=== PATIENT | female | born 1945 | race Caucasian/White ===

== ENCOUNTER → 2016-07-27 | Outpatient (CLI) | payer MEDICARE, OTHER ==
[~2016-07-27] MED LIST: ALBU8HFA IH; ASPI81 PO; CA/D1TAB7 PO; CALCITONIN SALMON NASAL; ENAL5 PO; FOLIC ACID PO; GARLIC PO; SIMV-260 PO; TIOT185 IH
== END | disposition home or self-care (01) ==
LOC: RADPV 07:06
PROVIDERS: ATTEND Legal Medicine
DX: J44.9 Chronic obstructive pulmonary disease, unspecified (principal); J84.9 Interstitial pulmonary disease, unspecified; M41.84 Other forms of scoliosis, thoracic region; I70.0 Atherosclerosis of aorta; M85.88 Other specified disorders of bone density and structure, other site; J92.9 Pleural plaque without asbestos; M41.86 Other forms of scoliosis, lumbar region; M47.816 Spondylosis without myelopathy or radiculopathy, lumbar region; M51.36 Other intervertebral disc degeneration, lumbar region; M51.37 Other intervertebral disc degeneration, lumbosacral region
CPT/HCPCS: 71020; 72100

== ENCOUNTER → 2016-08-21 | Outpatient (CLI) | payer MEDICARE, OTHER ==
[~2016-08-21] VITALS: Ht 160 cm; Wt 43.0 kg
[~2016-08-21] MED LIST changes: +CYCL10 PO; +ESOM20CA31 PO; +NAPR375T4 PO
[2016-08-21 12:43] VITALS: BP 137/74
== END | disposition home or self-care (01) ==
LOC: SRCNTR 12:39
PROVIDERS: ATTEND Internal Medicine
DX: J44.9 Chronic obstructive pulmonary disease, unspecified (principal); I10 Essential (primary) hypertension; E78.5 Hyperlipidemia, unspecified; Z87.891 Personal history of nicotine dependence
CPT/HCPCS: G0463

== ENCOUNTER → 2016-09-07 | Outpatient (CLI) | payer MEDICARE, OTHER ==
[2016-09-07 07:46] LABS: ABG A-A DIFF O2 26.5 mmHg (10-20.0); ABG BASE EXCESS 2.9 mmol/L (-2.0-3.0); ABG HCO3 26.8 mmol/L (22.0-26.0); ABG OXYHEMOGLOBIN 92.6 % (94.0-100.0); ABG PCO2 41 mmHg (35-45); ALLEN TEST, BLOOD GAS Positive; TEMPERATURE, FAHRENHEIT, BG 98.6 FAHREN (96.0-98.6)
== END | disposition home or self-care (01) ==
LOC: RESP 07:11
PROVIDERS: ATTEND Internal Medicine
DX: J44.9 Chronic obstructive pulmonary disease, unspecified (principal)
CPT/HCPCS: 82805; 94010; 94726; 94727; 94729

== ENCOUNTER → 2016-09-14 | Outpatient (CLI) | payer MEDICARE, OTHER ==
[~2016-09-14] VITALS: Ht 160 cm; Wt 41.0 kg
[2016-09-14 13:14] VITALS: BP 126/71
== END | disposition home or self-care (01) ==
LOC: SRCNTR 12:41
PROVIDERS: ATTEND Internal Medicine
DX: J44.9 Chronic obstructive pulmonary disease, unspecified (principal); I10 Essential (primary) hypertension; R09.02 Hypoxemia; E78.5 Hyperlipidemia, unspecified; Z87.891 Personal history of nicotine dependence
CPT/HCPCS: G0463

== ENCOUNTER → 2016-11-09 | Outpatient (CLI) | payer MEDICARE, OTHER ==
[~2016-11-09] VITALS: Ht 160 cm; Wt 42.0 kg
[~2016-11-09] MED LIST changes: +NAPR-1193 PO; -NAPR375T4 PO
[2016-11-09 13:13] VITALS: BP 134/76
== END | disposition home or self-care (01) ==
LOC: SRCNTR 12:53
PROVIDERS: ATTEND Internal Medicine
DX: J44.9 Chronic obstructive pulmonary disease, unspecified (principal); I10 Essential (primary) hypertension; Z79.82 Long term (current) use of aspirin; Z87.891 Personal history of nicotine dependence
CPT/HCPCS: G0463

== ENCOUNTER → 2017-03-15 | Outpatient (CLI) | payer MEDICARE, OTHER ==
[~2017-03-15] VITALS: Ht 160 cm; Wt 41.5 kg
[~2017-03-15] MED LIST changes: -CYCL10 PO; -ENAL5 PO
[2017-03-15 12:45] VITALS: BP 142/85
== END | disposition home or self-care (01) ==
LOC: SRCNTR 12:37
PROVIDERS: ATTEND Internal Medicine
DX: J44.9 Chronic obstructive pulmonary disease, unspecified (principal); I10 Essential (primary) hypertension; Z79.82 Long term (current) use of aspirin
CPT/HCPCS: G0463

== ENCOUNTER → 2017-08-09 | Outpatient (CLI) | payer MEDICARE, OTHER ==
[~2017-08-09] VITALS: Ht 160 cm; Wt 41.5 kg
[2017-08-09 12:54] VITALS: BP 137/69
== END | disposition home or self-care (01) ==
LOC: SRCNTR 12:27
PROVIDERS: ATTEND Internal Medicine
DX: J44.9 Chronic obstructive pulmonary disease, unspecified (principal); I10 Essential (primary) hypertension; F17.200 Nicotine dependence, unspecified, uncomplicated
CPT/HCPCS: G0463

== ENCOUNTER → 2017-08-28 | Outpatient (CLI) | payer MEDICARE, OTHER | END | disposition home or self-care (01) | LOC: RESP 07:53 | PROVIDERS: ATTEND Internal Medicine | DX: J44.1 Chronic obstructive pulmonary disease with (acute) exacerbation (principal) | CPT/HCPCS: 94010; 94726; 94727; 94729 ==

== ENCOUNTER → 2017-09-17 | Outpatient (CLI) | payer MEDICARE, OTHER ==
[~2017-09-17] VITALS: Ht 160 cm; Wt 42.5 kg
[2017-09-17 09:54] VITALS: BP 148/92
== END | disposition home or self-care (01) ==
LOC: SRCNTR 09:34
PROVIDERS: ATTEND Internal Medicine
DX: J44.1 Chronic obstructive pulmonary disease with (acute) exacerbation (principal); Z87.891 Personal history of nicotine dependence
CPT/HCPCS: G0463

== ENCOUNTER → 2017-11-22 | Outpatient (CLI) | payer MEDICARE, OTHER ==
[~2017-11-22] VITALS: Ht 160 cm; Wt 42.5 kg
[2017-11-22 13:31] VITALS: BP 146/72
== END | disposition home or self-care (01) ==
LOC: SRCNTR 13:07
PROVIDERS: ATTEND Internal Medicine
DX: J43.9 Emphysema, unspecified (principal); Z87.891 Personal history of nicotine dependence
CPT/HCPCS: 90471; 96372; G0463

== ENCOUNTER → 2018-03-27 | Outpatient (CLI) | payer MEDICARE, OTHER ==
[~2018-03-27] VITALS: Ht 160 cm; Wt 43.5 kg
[2018-03-27 09:44] VITALS: BP 189/99
== END | disposition home or self-care (01) ==
LOC: SRCNTR 09:02
PROVIDERS: ATTEND Internal Medicine
DX: J44.9 Chronic obstructive pulmonary disease, unspecified (principal)
CPT/HCPCS: G0463

== ENCOUNTER → 2018-05-01 | Outpatient (CLI) | payer MEDICARE, OTHER ==
[~2018-05-01] MED LIST changes: +ENAL5 PO; +OMEP20 PO
== END | disposition home or self-care (01) ==
LOC: RADMN 08:25
PROVIDERS: ATTEND Specialist
DX: I67.82 Cerebral ischemia (principal); R26.9 Unspecified abnormalities of gait and mobility; R25.1 Tremor, unspecified
CPT/HCPCS: 70551

== ENCOUNTER → 2018-12-11 | Outpatient (CLI) | payer MEDICARE, OTHER ==
[~2018-12-11] VITALS: Ht 160 cm; Wt 41.0 kg
[~2018-12-11] MED LIST changes: -ENAL5 PO; +ENAL5TAB17 PO; -ESOM20CA31 PO
[2018-12-11 09:26] VITALS: BP 143/78
== END | disposition home or self-care (01) ==
LOC: SRCNTR 09:14
PROVIDERS: ATTEND Internal Medicine
DX: I10 Essential (primary) hypertension (principal); J44.9 Chronic obstructive pulmonary disease, unspecified
CPT/HCPCS: G0463

== ENCOUNTER 2019-04-07 20:18 | Emergency (ER) | payer MEDICARE, OTHER ==
[~2019-04-07] VITALS: Ht 160 cm; Wt 42.3 kg
[~2019-04-07 20:18] MED LIST changes: +ASPI-728 PO; -ASPI81 PO
[2019-04-08 00:40] VITALS: BP 114/68
== END 2019-04-08 00:53 | disposition left against medical advice (07) ==
LOC: EMS 20:19
DX: S41.112A Laceration without foreign body of left upper arm, initial encounter (principal); S51.812A Laceration without foreign body of left forearm, initial encounter; R53.1 Weakness; R55 Syncope and collapse; I62.03 Nontraumatic chronic subdural hemorrhage; I10 Essential (primary) hypertension; E78.00 Pure hypercholesterolemia, unspecified; K21.9 Gastro-esophageal reflux disease without esophagitis; J44.9 Chronic obstructive pulmonary disease, unspecified; F17.210 Nicotine dependence, cigarettes, uncomplicated; Z79.82 Long term (current) use of aspirin; Z79.899 Other long term (current) drug therapy; W18.39XA Other fall on same level, initial encounter; Y93.89 Activity, other specified; Y92.099 Unspecified place in other non-institutional residence as the place of occurrence of the external cause; Y99.8 Other external cause status
CPT/HCPCS: 70450; 93005

== ENCOUNTER 2019-11-07 07:02 | Emergency (ER) | payer MEDICARE, OTHER ==
[~2019-11-07] VITALS: Ht 160 cm; Wt 40.0 kg
[2019-11-07] MEDS ORDERED: LIDOCAINE 5% TRANSDERMAL PATCH TD ONE (10:00)
[2019-11-07] MEDS ORDERED: NAPROXEN 250 MG TABLET PO ONE (10:15)
[2019-11-07 11:35] VITALS: BP 140/89
== END 2019-11-07 11:46 | disposition home or self-care (01) ==
LOC: EMS 07:04
DX: S32.019A Unspecified fracture of first lumbar vertebra, initial encounter for closed fracture (principal); S22.089A Unspecified fracture of T11-T12 vertebra, initial encounter for closed fracture; J44.9 Chronic obstructive pulmonary disease, unspecified; K21.9 Gastro-esophageal reflux disease without esophagitis; E78.00 Pure hypercholesterolemia, unspecified; I10 Essential (primary) hypertension; Z87.891 Personal history of nicotine dependence; Z79.82 Long term (current) use of aspirin; W01.0XXA Fall on same level from slipping, tripping and stumbling without subsequent striking against object, initial encounter; Y93.89 Activity, other specified; Y92.89 Other specified places as the place of occurrence of the external cause; Y99.8 Other external cause status
CPT/HCPCS: 70450; 72131

== ENCOUNTER 2019-11-12 11:08 | Inpatient (IN) | payer MEDICARE, OTHER ==
[~2019-11-12] VITALS: Ht 160 cm; Wt 38.6 kg
[2019-11-12] MEDS ORDERED: TRAM50TA4 PO (11:26)
[2019-11-12] MEDS ORDERED: LIDO35.44 TP (11:26)
[2019-11-12] MEDS ORDERED: CYCL10 PO (11:26)
[2019-11-12] MEDS ORDERED: KETOROLAC TROMETHAMINE 10 MG TABLET PO ONE (12:00)
[2019-11-12 12:28] LABS: BASOPHILS % (AUTO) 0.4 % (0.0-2.0); EOSINOPHILS % (AUTO) 0.2 % (1.0-6.0); HEMATOCRIT 32.9 % (36-46); LYMPHOCYTES # (AUTO) 0.5 K/uL (1.0-4.8); LYMPHOCYTES % (AUTO) 4.7 % (22.0-44.0); MEAN CORPUSCULAR HEMOGLOBIN 34.6 pg (26.0-34.0); MEAN CORPUSCULAR HGB CONC 33.3 G/dL (31.0-37.0); MEAN CORPUSCULAR VOLUME 104 fL (80-100); MONOCYTES % (AUTO) 9.5 % (2.0-9.0); NEUTROPHILS # (AUTO) 9.2 K/uL (1.8-7.7); PLATELET COUNT (AUTO) 268 K/uL (150-450); RED BLOOD CELL COUNT(AUTO) 3.17 MIL/uL (4.00-5.20); RED CELL DISTRIBUTION WIDTH 14.3 % (11.5-14.5)
[2019-11-12 12:30] LABS: ANION GAP 7 mmol/L (8-16); CARBON DIOXIDE 26 mmol/L (22-29); CHLORIDE 96 mmol/L (98-107); GLUCOSE,RANDOM 68 mg/dL (70-110); NEUTROPHILS % (AUTO) 85.2 % (40.0-70.0); POTASSIUM 3.5 mmol/L (3.5-5.1); SODIUM SERUM 129 mmol/L (136-145); UREA NITROGEN, BLOOD 9 mg/dL (7-18)
[2019-11-12 12:31] LABS: GLOMERULAR FILTR. RATE CALC > 60 mL/min (>60)
[2019-11-12 12:36] LABS: ALANINE AMINOTRANSFERASE 25 U/L (12-78); ALBUMIN 1.8 g/dL (3.4-5.0); ALKALINE PHOSPHATASE 124 U/L (46-116); ASPARTATE AMINOTRANSFERASE 31 U/L (15-37); BILIRUBIN,TOTAL 1.5 mg/dL (0.1-1.0); TOTAL PROTEIN, SERUM 5.4 g/dL (6.4-8.2)
[2019-11-12] MEDS ORDERED: SODIUM CHLORIDE 0.9% 1,000 ML IV ONE (13:45)
[2019-11-12] MEDS ORDERED: ONDANSETRON HCL 4 MG/2 ML VIAL IVP PRN ×2 (15:30→15:45)
[2019-11-12] MEDS ORDERED: HYDROCODONE/ACETAMINOPHEN 5-325 MG TABLET PO PRN (15:30)
[2019-11-12] MEDS ORDERED: ACETAMINOPHEN 325 MG TABLET PO PRN ×2 (15:30→15:45)
[2019-11-12] MEDS ORDERED: ALBUTEROL SULFATE HFA 90 MCG/PUFF 8 GM INHALER IH PRN (15:30)
[2019-11-12] MEDS ORDERED: 0.9% SODIUM CHLORIDE 10 ML SYRINGE IVP PRN (15:30)
[2019-11-12] MEDS ORDERED: BISACODYL 10 MG RECTAL RECTAL SUPPOSITORY PR PRN (15:45)
[2019-11-12] MEDS ORDERED: LORazepam 2 MG/ML VIAL IVP PRN (15:45)
[2019-11-12] MEDS ORDERED: MAGNESIUM HYDROXIDE SUSPENSION 30 ML UDCUP PO PRN (15:45)
[2019-11-12] MEDS ORDERED: ZOLPIDEM TARTRATE 5 MG TABLET PO PRN (15:45)
[2019-11-12 16:11] LABS: APPEARANCE,URINE CLOUDY (CLEAR); BILIRUBIN,URINE PRELIM. POSITIVE (NEGATIVE); GLUCOSE, URINE (UA) NEGATIVE (NEGATIVE); KETONES,URINE 40 mg/dL (NEGATIVE); LEUKOCYTE ESTERASE ,URINE TRACE (NEGATIVE); OCCULT BLOOD,URINE TRACE (NEGATIVE); PH,URINE 5.5 (5.0-8.0); PROTEIN,URINE TRACE (NEGATIVE)
[2019-11-12 16:19] LABS: NITRATE,URINE POSITIVE (NEGATIVE)
[2019-11-12 16:22] LABS: RBC,URINE 0-2 /HPF (0-2)
[2019-11-12 16:23] LABS: BACTERIA,URINE Many /HPF (None Seen); SQUAMOUS EPITHELIAL CELL,UR Moderate /LPF (None Seen); WBC,URINE 0-2 /HPF (0-5)
[2019-11-12 18:51] VITALS: BP 154/77
[2019-11-12] MEDS: OMEPRAZOLE 20 MG CAPSULE PO SCH (20:06)
[2019-11-12] MEDS: DEXTROSE 5%-0.9% SODIUM CHL 1,000 ML IV SCH (20:07)
[2019-11-12] MEDS ORDERED: HEPARIN SODIUM,PORCINE 5,000 UNITS/ML VIAL SQ SCH (21:00)
[2019-11-12] MEDS: CYCLOBENZAPRINE HCL 10 MG TABLET PO SCH (21:29)
[2019-11-12] MEDS: BUDESONIDE/FORMOTEROL FUMARATE 80-4.5 MCG/PUFF 6.9 GM INHALER IH SCH (21:29)
[2019-11-12 23:56] VITALS: BP 141/81
[2019-11-13 04:19] VITALS: BP 145/87
[2019-11-13 06:42] LABS: BASOPHILS % (AUTO) 0.2 % (0.0-2.0); EOSINOPHILS % (AUTO) 0.9 % (1.0-6.0); HEMATOCRIT 32.5 % (36-46); HEMOGLOBIN 10.6 g/dL (12.0-16.0); LYMPHOCYTES # (AUTO) 0.5 K/uL (1.0-4.8); LYMPHOCYTES % (AUTO) 5.2 % (22.0-44.0); MEAN CORPUSCULAR HEMOGLOBIN 34.5 pg (26.0-34.0); MEAN CORPUSCULAR HGB CONC 32.6 G/dL (31.0-37.0); MEAN CORPUSCULAR VOLUME 106 fL (80-100); MONOCYTES # (AUTO) 1.2 K/uL (0.1-1.0); MONOCYTES % (AUTO) 12.5 % (2.0-9.0); NEUTROPHILS # (AUTO) 7.6 K/uL (1.8-7.7); NEUTROPHILS % (AUTO) 81.2 % (40.0-70.0); PLATELET COUNT (AUTO) 267 K/uL (150-450); RED BLOOD CELL COUNT(AUTO) 3.08 MIL/uL (4.00-5.20); RED CELL DISTRIBUTION WIDTH 14.8 % (11.5-14.5)
[2019-11-13 07:21] VITALS: BP 156/87
[2019-11-13 07:27] LABS: ALANINE AMINOTRANSFERASE 19 U/L (12-78); ALBUMIN 1.5 g/dL (3.4-5.0); ALKALINE PHOSPHATASE 103 U/L (46-116); ANION GAP 8 mmol/L (8-16); ASPARTATE AMINOTRANSFERASE 26 U/L (15-37); BILIRUBIN,TOTAL 0.7 mg/dL (0.1-1.0); CALCIUM, TOTAL 7.7 mg/dL (8.8-10.5); CARBON DIOXIDE 25 mmol/L (22-29); CHLORIDE 98 mmol/L (98-107); CHOL/HDL RATIO 2.1 (3.9-5.7); CHOLESTEROL 122 mg/dL (131-200); FREE T4 (FREE THYROXINE) 1.18 ng/dL (0.76-1.46); GLUCOSE,RANDOM 133 mg/dL (70-110); HDL CHOLESTEROL 59 mg/dL (40-60); LDL CHOL (CALC.) 48 mg/dL (0-130); PHOSPHORUS 2.7 mg/dL (2.5-4.9); SODIUM SERUM 131 mmol/L (136-145); THYROID STIMULATING HORMONE 1.93 uIU/mL (0.36-3.74); TOTAL PROTEIN, SERUM 4.9 g/dL (6.4-8.2); TRIGLYCERIDES 76 mg/dL (15-150); UREA NITROGEN, BLOOD 6 mg/dL (7-18)
[2019-11-13 07:28] LABS: HEMOGLOBIN A1C 4.9 % (3.8-5.6)
[2019-11-13 07:37] LABS: GLOMERULAR FILTR. RATE CALC > 60 mL/min (>60)
[2019-11-13] MEDS ORDERED: GADOBUTROL 1 MMOL/ML 10 ML VIAL IVP ONE (07:40)
[2019-11-13] MEDS ORDERED: MAGNESIUM SULFATE 1 GM in DEXTROSE 5%-WATER 50 ML IV ONE (08:00)
[2019-11-13] MEDS: CYCLOBENZAPRINE HCL 10 MG TABLET PO SCH ×2 (08:02→21:00)
[2019-11-13] MEDS ORDERED: POTASSIUM CHLORIDE 20 MEQ ER TABLET PO ONE (08:15)
[2019-11-13] MEDS: TIOTROPIUM BROMIDE 18 MCG/INH HANDIHALER [5] IH SCH (09:00)
[2019-11-13] MEDS ORDERED: ENALAPRIL MALEATE 5 MG TABLET PO SCH (09:00)
[2019-11-13 10:56] LABS: INR 1.2 (0.9-1.1); PROTHROMBIN TIME 12.2 SEC (9.4-11.6)
[2019-11-13] MEDS: AmLODIPine BESYLATE 5 MG TABLET PO SCH (11:12)
[2019-11-13] MEDS: POTASSIUM CHL 10 MEQ/WATER 50 ML IV SCH ×2 (11:12→13:16)
[2019-11-13] MEDS: SODIUM CHLORIDE 1 GM TABLET PO SCH ×2 (11:12→18:21)
[2019-11-13] MEDS: SIMVASTATIN 20 MG TABLET PO SCH (11:12)
[2019-11-13] MEDS: OMEPRAZOLE 20 MG CAPSULE PO SCH ×2 (11:13→21:00)
[2019-11-13] MEDS: DEXTROSE 5%-0.9% SODIUM CHL 1,000 ML IV SCH (11:14)
[2019-11-13] MEDS: BUDESONIDE/FORMOTEROL FUMARATE 80-4.5 MCG/PUFF 6.9 GM INHALER IH SCH ×2 (11:14→22:53)
[2019-11-13] MEDS ORDERED: MAGNESIUM SULFATE 2 GM/WATER 50 ML IV ONE (12:15)
[2019-11-13 16:00] VITALS: BP 145/84
[2019-11-13 18:14] LABS: ANION GAP 7 mmol/L (8-16); CALCIUM, TOTAL 8.3 mg/dL (8.8-10.5); CARBON DIOXIDE 24 mmol/L (22-29); CHLORIDE 100 mmol/L (98-107); CREATININE 0.61 mg/dL (0.60-1.30); GLUCOSE,RANDOM 188 mg/dL (70-110); PHOSPHORUS 2.1 mg/dL (2.5-4.9); POTASSIUM 4.1 mmol/L (3.5-5.1); SODIUM SERUM 131 mmol/L (136-145); UREA NITROGEN, BLOOD 6 mg/dL (7-18)
[2019-11-13 18:19] LABS: GLOMERULAR FILTR. RATE CALC > 60 mL/min (>60)
[2019-11-13 19:55] VITALS: BP 146/82
[2019-11-13] MEDS ORDERED: LORazepam 2 MG/ML VIAL IVP ONE (23:30)
[2019-11-13 23:48] VITALS: BP 166/68
[2019-11-14 04:09] VITALS: BP 134/85
[2019-11-14] MEDS ORDERED: SODIUM CHLORIDE 0.9% 250 ML IV ONE (04:24)
[2019-11-14] MEDS ORDERED: RINGERS SOLUTION,LACTATED 1,000 ML IV ONE ×3 (06:25→08:57)
[2019-11-14] MEDS ORDERED: BUPIVACAINE/EPI/PF 0.5% 30 ML VIAL ONE (06:56)
[2019-11-14] MEDS ORDERED: IOHEXOL 240 MG/ML 20 ML VIAL ONE (06:58)
[2019-11-14 07:53] LABS: ABG CARBOXYHEMOGLOBIN 0.3 % (0.0-1.5); ABG METHEMOGLOBIN 0.3 % (0.0-1.5); ABG OXYGEN CONTENT 15.8 mL/dL (15.0-23.0); ABG OXYGEN SATURATION 98.4 % (95.0-98.0); ABG OXYHEMOGLOBIN 97.8 % (94.0-100.0); ABG PCO2 40 mmHg (35-45); ABG PH 7.382 (7.35-7.450); ABG TOTAL HEMOGLOBIN 11.3 G/dL (12.0-18.0); PO2, ARTERIAL BG 129.7 mmHg (75.0-83.0); SOURCE, BLOOD GAS ARTERIAL; TEMPERATURE, FAHRENHEIT, BG 98.6 FAHREN (96.0-98.6)
[2019-11-14 07:54] LABS: O2 DEVICE,BLOOD GAS CANNULA (ROOM AIR); SITE, BLOOD GAS RT RADIAL
[2019-11-14] MEDS: CYCLOBENZAPRINE HCL 10 MG TABLET PO SCH ×2 (09:00→21:57)
[2019-11-14] MEDS: BUDESONIDE/FORMOTEROL FUMARATE 80-4.5 MCG/PUFF 6.9 GM INHALER IH SCH ×2 (09:00→21:57)
[2019-11-14] MEDS: TIOTROPIUM BROMIDE 18 MCG/INH HANDIHALER [5] IH SCH (09:00)
[2019-11-14] MEDS: OMEPRAZOLE 20 MG CAPSULE PO SCH ×2 (09:00→21:14)
[2019-11-14] MEDS: AmLODIPine BESYLATE 5 MG TABLET PO SCH (09:00)
[2019-11-14] MEDS: SIMVASTATIN 20 MG TABLET PO SCH (09:00)
[2019-11-14] MEDS ORDERED: SUGAMMADEX SODIUM 200 MG/2 ML VIAL IVP ONE (09:14)
[2019-11-14 11:30] VITALS: BP 140/93
[2019-11-14] MEDS: SODIUM CHLORIDE 1 GM TABLET PO SCH ×3 (12:30→17:04)
[2019-11-14] MEDS: OXYGEN THERAPY IH SCH ×2 (12:31→21:16)
[2019-11-14] MEDS: DEXTROSE 5%-0.9% SODIUM CHL 1,000 ML IV SCH (13:42)
[2019-11-14 16:24] VITALS: BP 112/94
[2019-11-14] MEDS: LEVOFLOXACIN 500 MG/D5% WATER 100 ML IV SCH (17:04)
[2019-11-14 21:07] VITALS: BP 125/73
[2019-11-14] MEDS: TraMADol HCL 50 MG TABLET PO PRN (21:14)
[2019-11-15] VITALS (7 sets, daily range): BP systolic 112–130; BP diastolic 66–86
[2019-11-15] MEDS: SODIUM CHLORIDE 1 GM TABLET PO SCH ×3 (00:30→20:44)
[2019-11-15] MEDS ORDERED: LIDOCAINE/PF 2% 5 ML SYRINGE IVP ONE (06:34)
[2019-11-15] MEDS ORDERED: SUGAMMADEX SODIUM 200 MG/2 ML VIAL IVP ONE (06:34)
[2019-11-15] MEDS ORDERED: ONDANSETRON HCL 4 MG/2 ML VIAL IVP ONE (06:34)
[2019-11-15] MEDS ORDERED: DEXAMETHASONE SOD PHOS 4 MG/ML VIAL IVP ONE (06:34)
[2019-11-15] MEDS ORDERED: PROPOFOL 1% 20 ML VIAL IVP ONE (06:34)
[2019-11-15 07:07] LABS: ANION GAP 4 mmol/L (8-16); CALCIUM, TOTAL 7.9 mg/dL (8.8-10.5); CARBON DIOXIDE 28 mmol/L (22-29); CHLORIDE 105 mmol/L (98-107); CREATININE 0.42 mg/dL (0.60-1.30); GLUCOSE,RANDOM 108 mg/dL (70-110); PHOSPHORUS 2.4 mg/dL (2.5-4.9); POTASSIUM 3.7 mmol/L (3.5-5.1); SODIUM SERUM 137 mmol/L (136-145); UREA NITROGEN, BLOOD 3 mg/dL (7-18)
[2019-11-15 07:15] LABS: GLOMERULAR FILTR. RATE CALC > 60 mL/min (>60)
[2019-11-15] MEDS: DEXTROSE 5%-0.9% SODIUM CHL 1,000 ML IV SCH (08:02)
[2019-11-15] MEDS: OXYGEN THERAPY IH SCH ×2 (08:02→20:41)
[2019-11-15] MEDS: SIMVASTATIN 20 MG TABLET PO SCH (08:03)
[2019-11-15] MEDS: AmLODIPine BESYLATE 5 MG TABLET PO SCH (08:05)
[2019-11-15] MEDS: CYCLOBENZAPRINE HCL 10 MG TABLET PO SCH ×2 (08:05→20:44)
[2019-11-15] MEDS: OMEPRAZOLE 20 MG CAPSULE PO SCH ×2 (08:06→20:44)
[2019-11-15] MEDS: TraMADol HCL 50 MG TABLET PO PRN (13:59)
[2019-11-15] MEDS: TIOTROPIUM BROMIDE 18 MCG/INH HANDIHALER [5] IH SCH (15:25)
[2019-11-15] MEDS: LEVOFLOXACIN 500 MG/D5% WATER 100 ML IV SCH (15:25)
[2019-11-15] MEDS: BUDESONIDE/FORMOTEROL FUMARATE 80-4.5 MCG/PUFF 6.9 GM INHALER IH SCH ×3 (15:26→20:47)
[2019-11-16 04:15] VITALS: BP 122/70
[2019-11-16 08:30] VITALS: BP 107/62
[2019-11-16] MEDS: BUDESONIDE/FORMOTEROL FUMARATE 80-4.5 MCG/PUFF 6.9 GM INHALER IH SCH ×2 (09:00→20:33)
[2019-11-16] MEDS: AmLODIPine BESYLATE 5 MG TABLET PO SCH (09:00)
[2019-11-16] MEDS: TIOTROPIUM BROMIDE 18 MCG/INH HANDIHALER [5] IH SCH (09:18)
[2019-11-16] MEDS: SIMVASTATIN 20 MG TABLET PO SCH (09:19)
[2019-11-16] MEDS: CYCLOBENZAPRINE HCL 10 MG TABLET PO SCH ×2 (09:19→20:34)
[2019-11-16] MEDS: SODIUM CHLORIDE 1 GM TABLET PO SCH ×2 (09:20→20:34)
[2019-11-16] MEDS: OMEPRAZOLE 20 MG CAPSULE PO SCH ×2 (09:20→20:34)
[2019-11-16] MEDS: OXYGEN THERAPY IH SCH ×2 (09:20→20:33)
[2019-11-16] MEDS: POTASSIUM CHL 10 MEQ/WATER 50 ML IV SCH ×3 (11:00→13:00)
[2019-11-16 11:48] VITALS: BP 133/83
[2019-11-16 16:12] VITALS: BP 117/73
[2019-11-16] MEDS: LEVOFLOXACIN 500 MG/D5% WATER 100 ML IV SCH (16:21)
[2019-11-16 20:25] VITALS: BP 132/68
[2019-11-16 23:44] VITALS: BP 124/61
[2019-11-17 05:07] VITALS: BP 134/77
[2019-11-17] MEDS: TraMADol HCL 50 MG TABLET PO PRN (06:21)
[2019-11-17 06:53] LABS: BASOPHILS % (AUTO) 0.2 % (0.0-2.0); EOSINOPHILS % (AUTO) 1.3 % (1.0-6.0); HEMATOCRIT 32.3 % (36-46); HEMOGLOBIN 10.8 g/dL (12.0-16.0); LYMPHOCYTES # (AUTO) 0.9 K/uL (1.0-4.8); LYMPHOCYTES % (AUTO) 11.6 % (22.0-44.0); MEAN CORPUSCULAR HEMOGLOBIN 34.9 pg (26.0-34.0); MEAN CORPUSCULAR HGB CONC 33.3 G/dL (31.0-37.0); MEAN CORPUSCULAR VOLUME 105 fL (80-100); MONOCYTES # (AUTO) 0.8 K/uL (0.1-1.0); MONOCYTES % (AUTO) 11.5 % (2.0-9.0); NEUTROPHILS # (AUTO) 5.6 K/uL (1.8-7.7); NEUTROPHILS % (AUTO) 75.4 % (40.0-70.0); PLATELET COUNT (AUTO) 361 K/uL (150-450); RED BLOOD CELL COUNT(AUTO) 3.08 MIL/uL (4.00-5.20); RED CELL DISTRIBUTION WIDTH 14.6 % (11.5-14.5)
[2019-11-17 07:00] VITALS: BP 138/70
[2019-11-17 07:12] LABS: ANION GAP 5 mmol/L (8-16); CALCIUM, TOTAL 8.2 mg/dL (8.8-10.5); CARBON DIOXIDE 27 mmol/L (22-29); CHLORIDE 104 mmol/L (98-107); CREATININE 0.38 mg/dL (0.60-1.30); GLUCOSE,RANDOM 87 mg/dL (70-110); POTASSIUM 3.5 mmol/L (3.5-5.1); SODIUM SERUM 136 mmol/L (136-145); UREA NITROGEN, BLOOD 5 mg/dL (7-18)
[2019-11-17 07:13] LABS: GLOMERULAR FILTR. RATE CALC > 60 mL/min (>60)
[2019-11-17] MEDS: SIMVASTATIN 20 MG TABLET PO SCH (08:15)
[2019-11-17] MEDS: SODIUM CHLORIDE 1 GM TABLET PO SCH (08:15)
[2019-11-17] MEDS: AmLODIPine BESYLATE 5 MG TABLET PO SCH (08:15)
[2019-11-17] MEDS: OMEPRAZOLE 20 MG CAPSULE PO SCH (08:16)
[2019-11-17] MEDS: BUDESONIDE/FORMOTEROL FUMARATE 80-4.5 MCG/PUFF 6.9 GM INHALER IH SCH (08:16)
[2019-11-17] MEDS: OXYGEN THERAPY IH SCH (08:16)
[2019-11-17] MEDS: TIOTROPIUM BROMIDE 18 MCG/INH HANDIHALER [5] IH SCH (08:16)
[2019-11-17] MEDS: CYCLOBENZAPRINE HCL 10 MG TABLET PO SCH (08:16)
[2019-11-17] MEDS ORDERED: THIAMINE 100 MG TABLET PO SCH (09:00)
[2019-11-17] MEDS ORDERED: MULTIVITAMINS WITH MINERALS, THERAPEUTIC TABLET PO SCH (09:00)
[2019-11-17 10:57] VITALS: BP 144/81
[2019-11-17] MEDS: LEVOFLOXACIN 500 MG/D5% WATER 100 ML IV SCH (15:09)
[2019-11-17 15:48] VITALS: BP 123/94
== END 2019-11-17 19:15 | DRG 477 ==
LOC: EMS 11:09 → 4E 15:35 → 6S 18:20 → 4E 11-13 18:52 → 5S 11-14 11:15
PROVIDERS: ADMIT Internal Medicine Geriatric Medicine; ATTEND Internal Medicine Geriatric Medicine
PROC: 0QS03ZZ Reposition Lumbar Vertebra, Percutaneous Approach (ICD-10-PCS; principal; 2019-11-13)
PROC: 0QB03ZX Excision of Lumbar Vertebra, Percutaneous Approach, Diagnostic (ICD-10-PCS; 2019-11-13)
PROC: 0QU03JZ Supplement Lumbar Vertebra with Synthetic Substitute, Percutaneous Approach (ICD-10-PCS; 2019-11-13)
DX: M48.56XA Collapsed vertebra, not elsewhere classified, lumbar region, initial encounter for fracture (principal); E43 Unspecified severe protein-calorie malnutrition; E87.1 Hypo-osmolality and hyponatremia; Z68.1 Body mass index [BMI] 19.9 or less, adult; G93.40 Encephalopathy, unspecified; N39.0 Urinary tract infection, site not specified; M48.54XA Collapsed vertebra, not elsewhere classified, thoracic region, initial encounter for fracture; M81.0 Age-related osteoporosis without current pathological fracture; D64.9 Anemia, unspecified; I10 Essential (primary) hypertension; R26.9 Unspecified abnormalities of gait and mobility; M41.9 Scoliosis, unspecified; J44.9 Chronic obstructive pulmonary disease, unspecified; E78.5 Hyperlipidemia, unspecified; G89.29 Other chronic pain; K21.9 Gastro-esophageal reflux disease without esophagitis; E83.42 Hypomagnesemia; E87.6 Hypokalemia; E86.0 Dehydration; E83.39 Other disorders of phosphorus metabolism; B96.20 Unspecified Escherichia coli [E. coli] as the cause of diseases classified elsewhere; Z03.818 Encounter for observation for suspected exposure to other biological agents ruled out
CPT/HCPCS: 36600; 72100; 72157; 72158; 73502; 82533; 82805; 83036; 83735; 83935; 84100; 84300; 84439; 84443; 87081; 87086; 87426; 88307; 88311; 93005; 97112; 97162; 97163; 97166; 97530; 97535; A9585; G0378; J0690; J1100; J1644; J1956; J2060; J2405; J2704; J3475; J3480; J3490; J7030; J7042; J7050; J7060; J7120; Q9966